=== PATIENT | male | born 1995 | race Two or more races ===

== ENCOUNTER 2023-05-20 09:08 | Outpatient (AMB) | payer OTHER, SELFPAY ==
--- NOTE | 2023-05-20 09:11 | A.OFFPC_ITS ---
Vital Signs 05/20/23 09:12 05/20/23 09:55 Height 5 ft 7 in Weight 282 lb 0.4 oz BMI 44.2 BP 132/92 H 106/70 Blood Pressure Location Lt brachial Rt brachial Position Sitting Sitting Pulse 65 Pulse Source Pulse Oximeter Pulse Oximetry (%) 97 Oxygen Delivery Method Room Air Intake Visit Reasons: New patient-Requesting physical Building Mechanic Required: No Allergies No Known Allergies Allergy (Verified 05/20/23 09:38) Medication List - Last Reconciled 05/20/23 by Emily Sequeira CNP No Known Home Meds Tobacco use date assessed: 05/20/23 Dental Screening Dental Screen Date: 05/20/23 Did you have a dental visit in the last 12 months?: Yes Did you have a dental problem in the last 6 months where you did not have access to dental care?: No Was dental information given to patient?: Patient has dentist HPI HPI Comments History of Present Illness Details New patient Prior PCP:?[facility] Dr. Colindres Last office visit/CPE: About 10 months ago Last routine labs: Likely 2019 Acute issue(s): Anxiety -Not on meds. He notes that he trial psy chotropic medications without improvement. He has been using recreational cannabis with significant improvement Depression -Not on meds Asthma -Not on meds He notes that he does not exercise and has not been making healthy dietary choices PMHx: Anxiety, depression SurgHx: None FHx: Mom: Asthma, DM. Dad: Alcoholism, DM, HTN. MGM: Cardiovascular disease, DM, HTN, HLD. PGM: DM SocHx: Smokes 5 cigarettes daily; 13yr history. drinks etoh occasionally. Was smoking but currently edibles, 5 mg daily PFSH Family History (Updated 05/20/23 @ 09:33 by MARGO Jensen) Mother Asthma Diabetes Father Diabetes High blood pressure Alcoholism Maternal Grandmother High blood pressure Diabetes Cardiovascular disease High cholesterol Paternal Grandmother Diabetes Social History Housing: Apartment Patient Tobacco Use Status: Current everyday Tobacco user Tobacco use type: Cigarette Cigarettes Per Day: 5 Years Smoked: 13 years service: No Current occupational status: employed Cognitive needs: No Hearing needs: No Vision needs: No Questionnaire PHQ-9 Over the last 2 weeks, how often have you been bothered by any of the following problems? 1. Little interest or pleasure in doing things: more than half the days 2. Feeling down, depressed, or hopeless: nearly every day 3. Trouble falling or staying asleep, or sleeping too much: nearly every day 4. Feeling tired or having little energy: nearly every day 5. Poor appetite or overeating: more than half the days 6. Feeling bad about yourself - or that you are a failure or have let yourself or your family down: more than half the days 7. Trouble concentrating on things, such as reading the newspaper or watching television: more than half the days 8. Moving or speaking so slowly that other people could have noticed. Or the opposite - being so fidgety or restless that you have been moving around a lot more than usual: not at all 9. Thoughts that you would be better off or of hurting yourself in some way: several days Total score: 18 Depression Screening Interpretation: Positive Depression Screening Follow-up: Existing condition Depression Screening Done: Yes Source: Developed by Drs. Yaniv Gomez, Divine Marie, Dequan Burns and colleagues, with an educational florina from [employer]. Thrive Questionnaire Date Thrive assessed: 05/20/23 I am a: Patient What is your living situation today?: I have a steady place to live Within the past 12 months, did the food you bought not last and you didn't have the money to get more?: Never true Within the past 12 months, did you worry whether your food would run out before you got money to buy more?: Sometimes True Do you have trouble paying for medicines?: No Do you have trouble getting transportation to medical appointments?: No Do you have trouble paying your heating and electricity bill?: No Do you have trouble taking care of your child, family member or friend?: No Do you have trouble with day-to-day activities such as bathing, preparing meals, shopping, managing finances, etc.?: No Are you currently unemployed and looking for a job?: No Are you interested in more education?: No AUDIT C Alcohol Use Questionnaire (AUDIT-C) 1. How often do you have a drink containing alcohol?: 2-4 times a month 2. How many drinks containing alcohol do you have on a typical day when you are drinking?: 1 or 2 3. How often do you have six or more drinks on one occasion?: Never Total Score: 2 JERILYN-7 AMB Questionnaire JERILYN-7 Date JERILYN - 7 assessed: 05/20/23 Feeling nervous, anxious, or on edge: 1 = Several days Not being able to stop or control worryin = More than half the days Worrying too much about different things: 1 = Several days Trouble relaxin = Nearly every day Being so restless that it is hard to sit still: 1 = Several days Becoming easily annoyed or irritable: 3 = Nearly every day Feeling afraid as if something awful might happen: 1 = Several days Total JERILYN-7 score (0-4 normal; 5-9 mild; 10-14 moderate; 15-21 severe): 12 Source: Developed by Drs. Yaniv Gomez, Divine Marie, Dequan Burns and colleagues, with an educational florina from [employer]. Review of Systems Const Details: Const Denies chills, Denies fatigue, Denies fever(s), Denies headache(s) and Denies weakness ENT Denies dizziness and Denies headache(s) Card Denies chest pain, Denies lightheadedness, Denies dyspnea and Denies other (Palpitations) Resp Denies cough, Denies dyspnea, Denies wheezing and Denies other ( shortness of br eath) GI Denies abdominal pain, Denies melena, Denies hematochezia, Denies change in bowel habits, Denies dyspepsia and Denies nausea Denies hematuria and Denies dysuria Musc Denies abnormal gait, Denies myalgias, Denies arthralgias, Denies numbness and Denies tingling Skin/Breast Denies rash, Denies unusual bruising and Denies wounds Neuro Denies abnormal gait, Denies dizziness, Denies headache(s), Denies memory loss, Denies numbness, Denies Sensory deficit (Neuro), Denies tingling and Denies weakness Psych Denies anxiety, Denies depression, Denies memory loss Endo Denies cold intolerance, Denies fatigue, Denies heat intolerance, Denies polydipsia and Denies polyuria Aller/Immun Denies wheezing Physical exam (Primary Care) Vital Signs: Last Vital Signs Pulse 65 05/20/23 09:12 BP 106/70 05/20/23 09:55 Pulse Ox 97 05/20/23 09:12 Oxygen Delivery Method Room Air 05/20/23 09:12 BMI result Body Mass Index 44.2 Tobacco/Smoking Status: Tobacco use Status Tobacco use date assessed 05/20/23 05/20/23 09:15 Patient Tobacco Use Status Current everyday Tobacco 05/20/23 09:24 Tobacco use type Cigarette 05/20/23 09:24 PHQ-9: PHQ-9 Score PHQ-9: Total score 18 05/20/23 09:52 Depression Screening Interpretation: Positive Depression Screening Follow-up: Existing condition Thrive Assessment: Date of Thrive Assessment Date Thrive assessed 05/20/23 05/20/23 09:15 Const Other: General: no acute distress and well developed Nutritional Appearance: well nourished Orientation/consciousness: patient oriented x3 HENMT Head: Yes normocephalic and Yes atraumatic Eyes General: appearance normal, both eyes and all related structures Pupils: Equal, round and reactive pupils present EOM: EOMs intact bilaterally Resp Effort & Inspection: normal respiratory effort Auscultation: clear to auscultation bilaterally Cardio Rate: regular rate Rhythm: regular rhythm Heart sounds: S1 normal heart sound present, S2 normal heart sound present, no gallops, no murmurs and no rubs GI Palpation (GI): No Abdominal aortic bruit present, Soft to palpation, nontender, No hepatosplenomegaly present and No Rebound tenderness present Auscultation: normal bowel sounds General: Yes no CVA tenderness Back/Spine/Pelvis Back: no CVA tenderness Cervical Spine: cervical ROM normal and No Cervical spine tenderness Thoracic/Lumbar Spine: thoraco-lumbar ROM normal, No pain with thoraco-lumbar ROM, No thoracic spinal tenderness and No lumbar spinal tenderness Extrem General: Yes normal to inspection, No edema and No calf tenderness Skin General: warm and dry. Normal skin color. Normal skin turgor Lesions: no lesions Rashes: no rashes Trauma: no lacerations or abrasions Wounds: no wounds Nails: normal Neuro General: patient oriented x3, gait normal and no focal neuro deficit Cranial nerves: Yes Equal, round and reactive pupils present Cognition (Neuro): normal cognition Gait exam (Neuro): Normal gait present Sensory Exam: No Sensory deficit (Neuro) Psych Appearance: grossly normal Affect: normal affect Attitude: cooperative Thought process: Normal thought process present Assessment and Plan Assessment & Plan (1) Asthma: Code(s): J45.909 - Unspecified asthma, uncomplicated Plan: No acute symptoms Not admit Follow-up with symptoms or concerns Verbalized understanding and agreed with the plan (2) Anxiety: Code(s): F41.9 - Anxiety disorder, unspecified Plan: Reports history of anxiety and depression PHQ-9 and JERILYN-7 scores revealed moderately severe depression and moderate anxiety respectively Not on psychotropic medications Recreational cannabis provides improvement Denies psychotherapy or psychotropic meds Routine exercise encouraged Advised to notify his PCP if he changes mind on psychotherapy or psychotropic medications Follow-up in 3-4 weeks for an extended physical exam and labs review Return sooner with symptoms or concerns Verbalized understanding and agreed with treatment plan (3) Depression: Code(s): F32.A - Depression, unspecified Plan: As above (4) Morbid obesity with BMI of 40.0-44.9, adult: Code(s): E66.01 - Morbid (severe) obesity due to excess calories; Z68.41 - Body mass index [BMI] 40.0-44.9, adult Plan: He does not exercise or makes healthy dietary choices Routine exercise and healthy dietary choices encouraged He prefers bedspread inspector/dietitian referral instead of weight management Referred to bedspread inspector/dietitian Follow-up with symptoms or concerns Verbalized understanding and agreed with treatment plan (5) Laboratory tests ordered as part of a complete physical exam (CPE): Code(s): Z00.00 - Encounter for general adult medical examination without abnormal findings Plan: Fasting labs ordered as part of a complete physical exam. Advised to fast for at least 10 hours before getting labs drawn. May drink water Verbalized understanding and agreed with treatment plan. Orders: Orders Complete Blood Count Auto Diff Today Z00.00 - Encounter for general adult medical examination without abnormal findings Comprehensive [place]. Panel Fast Today Z00.00 - Encounter for general adult medical examination without abnormal findings Lipid Panel Today Z00.00 - Encounter for general adult medical examination without abnormal findings TSH reflex Free T4 Today Z00.00 - Encounter for general adult medical examination without abnormal findings UA CC w/rflx Micro + Cult Today Z00.00 - Encounter for general adult medical examination without abnormal findings Coding Level of Care Code New Pt Level 4 (64162) Diagnoses Asthma J45.909 Anxiety F41.9 Depression F32.A Morbid obesity with BMI of 40.0-44.9, adult E66.01; Z68.41 Laboratory tests ordered as part of a complete physical exam (CPE) Z00.00
[2023-05-20 09:12] VITALS: BP 132/92; PULSE 65; O2SAT 97; BMI 44.2
[2023-05-20 09:55] VITALS: BP 106/70
== END 2023-05-20 10:01 | disposition home or self-care (01) ==
PROVIDERS: PCP Nurse Practitioner Family; Visit Provider Nurse Practitioner Family
DX: J45.909 Unspecified asthma, uncomplicated (principal); F32.A Depression, unspecified; E66.01 Morbid (severe) obesity due to excess calories; Z68.41 Body mass index [BMI] 40.0-44.9, adult; F41.9 Anxiety disorder, unspecified
CPT/HCPCS: 99204

== ENCOUNTER 2023-06-21 10:31 | Outpatient (AMB) | payer OTHER, SELFPAY ==
[2023-06-21 10:35] VITALS: BP 148/84; PULSE 98; RESP 13; TEMP 36.7; O2SAT 98; BMI 44.4
--- NOTE | 2023-06-21 10:35 | MHC.PC.OV ---
Vital Signs 06/21/23 10:35 06/21/23 11:17 Height 5 ft 7 in Weight 283 lb 8 oz BMI 44.4 BP 148/84 H 130/90 H Blood Pressure Location Rt brachial Rt brachial Position Sitting Sitting Respiration 13 Pulse 98 Pulse Source Pulse Oximeter Temp 98.1 F Temp Source Temporal Artery Scan Pulse Oximetry (%) 98 Oxygen Delivery Method Room Air Intake Visit Reasons: CPE Coordinator Cardiopulmonary Services Required: No Accompanied by: Self / Same As Patient Allergies Seasonal Allergies Allergy (Intermediate, Verified 06/21/23 10:54) Runny Nose Medication List - Last Reconciled 06/21/23 by Emily Sequeira CNP No Known Home Meds Tobacco use date assessed: 05/20/23 Dental Screening Dental Screen Date: 06/21/23 Did you have a dental visit in the last 12 months?: Yes Did you have a dental problem in the last 6 months where you did not have access to dental care?: No Was dental information given to patient?: Patient has dentist HPI HPI Comments History of Present Illness Details 28-year-old male presents for an extended physical exam He established care a month ago He has not gotten his outstanding labs done He reports controlled anxiety and depression symptoms. He wants to connect to a therapist He offers no complaints and denies acute symptoms at this time He notes that he has been eating fast and junk food routinely. He has not been exercising frequently He currently smokes 5 cigarettes daily. He has been smoking for the past 13 years. He bought otc Chantix gum and intends to quit smoking He smokes 2 joints of marijuana daily He is sexually active, in a monogamous relationship, and has no concerns for STD [facility] Medical History (Updated 06/21/23 @ 11:14 by Emily Sequeira CNP) No pertinent past medical history Surgical History (Updated 06/21/23 @ 10:43 by Florence Hollingsworth MA) No pertinent past surgical history Family History Mother Asthma Diabetes Father Diabetes High blood pressure Alcoholism Maternal Grandmother High blood pressure Diabetes Cardiovascular disease High cholesterol Paternal Grandmother Diabetes Other Mental health disorder Substance abuse Social History Housing: Apartment Patient Tobacco Use Status: Current everyday Tobacco user Tobacco use type: Cigarette Cigarette Packs Per Day: 0.25 Cigarettes Per Day: 5 Years Smoked: 13 years e-Cigarette/Vaping Use: Never Used service: No Current occupational status: employed Current occupation: [employer] Cognitive needs: No Hearing needs: No Vision needs: No Questionnaire PHQ-9 Over the last 2 weeks, how often have you been bothered by any of the following problems? 1. Little interest or pleasure in doing things: several days 2. Feeling down, depressed, or hopeless: several days 3. Trouble falling or staying asleep, or sleeping too much: more than half the days 4. Feeling tired or having little energy: more than half the days 5. Poor appetite or overeating: more than half the days 6. Feeling bad about yourself - or that you are a failure or have let yourself or your family down: several days 7. Trouble concentrating on things, such as reading the newspaper or watching television: not at all 8. Moving or speaking so slowly that other people could have noticed. Or the opposite - being so fidgety or restless that you have been moving around a lot more than usual: not at all 9. Thoughts that you would be better off or of hurting yourself in some way: not at all Total score: 9 Depression Screening Interpretation: Positive Depression Screening Follow-up: Existing condition and Community Mental Health Worker F/U Depression Screening Done: Yes 84712 - PHQ-9 Billing: Yes Source: Developed by Drs. Yaniv Gomez, Divine Marie, Dequan Burns and colleagues, with an educational florina from [employer]. Thrive Questionnaire Date Thrive assessed: 05/20/23 AUDIT C Alcohol Use Questionnaire (AUDIT-C) 1. How often do you have a drink containing alcohol?: Never 3. How often do you have six or more drinks on one occasion?: Never Total Score: 0 JERILYN-7 AMB Questionnaire JERILYN-7 Date JERILYN - 7 assessed: 06/21/23 Feeling nervous, anxious, or on edge: 1 = Several days Not being able to stop or control worryin = Several days Worrying too much about different things: 0 = Not at all Trouble relaxin = Several days Being so restless that it is hard to sit still: 0 = Not at all Becoming easily annoyed or irritable: 2 = More than half the days Feeling afraid as if something awful might happen: 0 = Not at all Total JERILYN-7 score (0-4 normal; 5-9 mild; 10-14 moderate; 15-21 severe): 5 Source: Developed by Drs. Yaniv Gomez, Divine Marie, Dequan Burns and colleagues, with an educational florina from [employer]. JERILYN-7 Assessment Billing JERILYN-7 Assessment Tool: JERILYN-7 Assessment 31553 Review of Systems Const Details: Denies chills, Denies fatigue, Denies fever(s), Denies headache(s) and Denies weakness HEENT Denies change in vision, Denies dizziness, Denies headache(s), Denies hearing loss, Denies nasal congestion, Denies sinus pain, Denies sinus pressure and Denies sore throat Card Denies chest pain, Denies lightheadedness, Denies dyspnea and Denies other (palpitations) Resp Denies cough, Denies dyspnea and Denies wheezing GI Denies abdominal pain, Denies melena, Denies hematochezia, Denies change in bowel habits, Denies dyspepsia and Denies nausea Denies hematuria and Denies dysuria Musc Denies abnormal gait, Denies myalgias, Denies arthralgias, Denies numbness and Denies tingling Skin/Breast Denies rash, Denies unusual bruising and Denies wounds Neuro Denies abnormal gait, Denies dizziness, Denies headache(s), Denies memory loss, Denies numbness, Denies Sensory deficit (Neuro), Denies tingling and Denies weakness Psych Denies anxiety, Denies depression and Denies memory loss Endo Denies cold intolerance, Denies fatigue, Denies heat intolerance, Denies polydipsia and Denies polyuria Alejandro/Lymph Denies easy bleeding and Denies easy bruising Aller/Immun Denies wheezing Physical exam (Primary Care) Vital Signs: Last Vital Signs Temp 98.1 F 06/21/23 10:35 Pulse 98 06/21/23 10:35 Resp 13 06/21/23 10:35 BP 148/84 H 06/21/23 10:35 Pulse Ox 98 06/21/23 10:35 Oxygen Delivery Method Room Air 06/21/23 10:35 BMI result Body Mass Index 44.4 Tobacco/Smoking Status: Tobacco use Status Tobacco use date assessed 05/20/23 06/21/23 10:37 Patient Tobacco Use Status Current everyday Tobacco 06/21/23 10:37 Tobacco use type Cigarette 06/21/23 10:37 e-Cigarette/Vaping Use Never Used 06/21/23 10:47 PHQ-9: PHQ-9 Score PHQ-9: Total score 9 06/21/23 10:47 Depression Screening Interpretation: Positive Depression Screening Follow-up: Existing condition and Community Mental Health Worker F/U Thrive Assessment: Date of Thrive Assessment Date Thrive assessed 05/20/23 06/21/23 10:37 Const Other: General: no acute distress, well developed, alert and awake Nutritional Appearance: well nourished Orientation/consciousness: patient oriented x3 HENMT Head: Yes normocephalic and Yes atraumatic Ears: hearing grossly normal bilaterally and TM's normal bilaterally General nose exam: Normal external nose present and Normal nares present Mouth: Normal oral and palatal mucosa present and moist mucous membranes Teeth and gingiva: dentition normal Throat: Yes oropharynx normal Eyes Pupils: Equal, round and reactive pupils present and Pupil accommodation reflex normal EOM: EOMs intact bilaterally Neck Neck: Yes normal visual inspection, Yes no lymphadenopathy and Yes trachea midline Thyroid: Thyroid normal Carotids: no bruits Lymphatic: no lymphadenopathy noted Chest Chest palpation & inspection: normal inspection of the chest Resp Effort & Inspection: normal respiratory effort Auscultation: clear to auscultation bilaterally Cardio Rate: regular rate Rhythm: regular rhythm Heart sounds: S1 normal heart sound present, S2 normal heart sound present, no gallops, no murmurs and no rubs Bruits: no abdominal aortic bruits and no carotid bruits GI Palpation (GI): No Abdominal aortic bruit present, Soft to palpation, nontender, No hepatosplenomegaly present and No Rebound tenderness present Auscultation: normal bowel sounds General: Yes no CVA tenderness Back/Spine/Pelvis Back: no CVA tenderness Cervical Spine: cervical ROM normal and No Cervical spine tenderness Thoracic/Lumbar Spine: thoraco-lumbar ROM normal, No pain with thoraco-lumbar ROM, No thoracic spinal tenderness and No lumbar spinal tenderness Skin General: warm and dry. Normal skin color. Normal skin turgor Lesions: no lesions Rashes: no rashes Trauma: no lacerations or abrasions Wounds: no wounds Nails: normal Neuro General: patient oriented x3, gait normal and CN's II-XI intact bilaterally Cranial nerves: Yes Equal, round and reactive pupils present Cognition (Neuro): normal cognition Gait exam (Neuro): Normal gait present Motor exam (neuro): 5/5 motor strength present throughout Sensory Exam: No Sensory deficit (Neuro) Deep tendon reflexes (DTR's): Right patellar reflex intensity grade: 2+ and Left patellar reflex intensity grade: 2+ Extrem General: Yes normal to inspection, No edema and No calf tenderness Psych Appearance: grossly normal Affect: normal affect Attitude: cooperative Thought process: Normal thought process present Assessment and Plan Assessment & Plan (1) Normal physical examination, routine: Code(s): Z00.00 - Encounter for general adult medical examination without abnormal findings Plan: No significant physical restrictions or limitations noted Healthy diet and routine exercise encouraged Advised to get urinalysis and fasting blood done and schedule a telehealth visit in 3-4 weeks for labs review Return sooner with symptoms or concerns Verbalized understanding and agreed with the plan (2) Anxiety and depression: Code(s): F41.9 - Anxiety disorder, unspecified; F32.A - Depression, unspecified Plan: Controlled depression and anxiety symptoms PHQ-9 and JERILYN-7 scores revealed mild depression and anxiety Routine exercise encouraged He met with the [facility]W who would refer him to a therapist Follow-up with symptoms or concerns Verbalized understanding and agreed with treatment plan (3) Morbid obesity with BMI of 40.0-44.9, adult: Code(s): E66.01 - Morbid (severe) obesity due to excess calories; Z68.41 - Body mass index [BMI] 40.0-44.9, adult Plan: He currently weighs 283 lb, BMI is 44.4 Healthy diet and routine exercise encouraged Referred to equine dentist Return with symptoms or concerns Verbalized understanding and agreed with the plan (4) Smoking 1/2 pack a day or less: Code(s): F17.210 - Nicotine dependence, cigarettes, uncomplicated Plan: He currently smokes 5 cigarettes daily. He has been smoking for the past 13 years He has been using [id number] Chantix for smoking cessation Instructed on the health risks and complications of cigarette smoking and encouraged to quit smoking Follow-up with symptoms or concerns or further treatment of cigarette smoking Verbalized understanding and agreed with the plan Orders: Referrals Principal Java Software Engineer Nutrition Referral E66.01 - Morbid (severe) obesity due to excess calories, Z68.41 - Body mass index [BMI] 40.0-44.9, adult Coding Level of Care Code Est Pt Prev Care 18-39y(06038) Diagnoses Normal physical examination, routine Z00.00 Anxiety and depression F41.9; F32.A Morbid obesity with BMI of 40.0-44.9, adult E66.01; Z68.41 Smoking 1/2 pack a day or less F17.210 Additional Codes JERILYN-7 Assessment Billing - JERILYN-7 Assessment Tool: JERILYN-7 Assessment [id number] ([id number])
[2023-06-21 11:17] VITALS: BP 130/90
== END 2023-06-21 11:18 | disposition home or self-care (01) ==
PROVIDERS: PCP Nurse Practitioner Family; Visit Provider Nurse Practitioner Family
DX: Z00.00 Encounter for general adult medical examination without abnormal findings (principal); E66.01 Morbid (severe) obesity due to excess calories; Z68.41 Body mass index [BMI] 40.0-44.9, adult; F41.9 Anxiety disorder, unspecified; F32.A Depression, unspecified; F17.210 Nicotine dependence, cigarettes, uncomplicated
CPT/HCPCS: 99395

== ENCOUNTER 2023-09-03 17:59 | Emergency (ER) | payer OTHER, SELFPAY ==
--- NOTE | ~2023-09-03 | XR_ITS ---
EXAMINATION: XR HIP, LEFT CLINICAL INFORMATION: Pain COMPARISON: None available. TECHNIQUE: AP upright, AP supine, and frog-leg lateral views of the left hip. FINDINGS: Osseous fragment at the superolateral acetabulum likely reflects an os acetabuli. Bilateral femoral heads have an oblong appearance. No acute fracture. The femoral heads are well seated within the acetabula bilaterally. The pelvic rim is intact. No pubic symphysis diastases. Sacroiliac joint spaces are well-maintained without erosions or surrounding sclerosis. XR/XR hip LT min 2V IMPRESSION: Left femoral head deformity with os acetabuli, suggestive of cam-type femoroacetabular impingement syndrome.
--- NOTE | ~2023-09-03 | XR_ITS ---
EXAMINATION: XR LUMBAR SPINE CLINICAL INFORMATION: Pain COMPARISON: None available. TECHNIQUE: Three views of the lumbar spine. FINDINGS: There is anatomic alignment of the lumbar vertebral bodies and posterior elements. Vertebral body heights are maintained. Intervertebral disc spaces appear relatively well-preserved. No acute fracture is seen. Slight anterior wedging of T11 and T12 is suspected to be chronic, with anterior endplate osteophytes noted. Sacroiliac joints appear intact. XR/XR lumbar spine 2-3V IMPRESSION: No acute findings identified.
[2023-09-03 18:01] VITALS: BP 145/88; PULSE 103; RESP 18; TEMP 36.7; O2SAT 100; BMI 41.5
--- NOTE | 2023-09-03 18:29 | ED_ITS ---
HPI - General Adult General Chief complaint: Back Pain/Injury Stated complaint: sciatica pain Time Seen by Provider: 09/03/23 18:29 Source: patient Mode of arrival: wheelchair Limitations: no limitations History of Present Illness HPI narrative: Patient is a 28 year old assigned male at with a history of anxiety presenting to the emergency department today with back pain and left hip pain. Patient states that over the last week he has had back pain. Patient states that he was seen at [facility] and released with muscle relaxers but they don't seem to be helping. Patient denies any dizziness, lightheadedness, abdominal pain, nausea, vomiting, fever, chills, blurry vision, double vision, loss of vision, chest pain, difficulty breathing, shortness of breath, night sweats, pain with urination, increased urinary frequency, increased urinary urgency, blood in his urine or stool, syncope or a near syncopal episode, recent trauma or falls, bowel incontinence, bladder incontinence, bowel retention, bladder retention, or any other complaints at this time. Onset (ago): week(s) (1) Location: back Radiation: other (into buttocks and legs) Severity: mild Severity scale (1-10): 4 Quality: aching and dull Pain Consistency: constant Relieving factors: none Exacerbating factors: movement Associated symptoms: denies other symptoms Treatments prior to arrival: other (muscle relaxers) Related Data Previous Rx's ?Medication ?Instructions ?Recorded celecoxib 200 mg capsule (Celebrex) 200 mg PO BID 2 weeks #28 caps 09/03/23 Allergies Allergy/AdvReac Type Severity Reaction Status Date / Time Seasonal Allergies Allergy Intermediate Runny Nose Verified 09/03/23 18:03 Review of Systems Constitutional: Constitutional: Reports no additional constitutional complaints, Denies chills, Denies fever(s) and Denies night sweats Eyes: Eyes: Reports no additional eye complaints, Denies blurry vision, Denies change in vision, Denies diplopia, Denies eye discharge, Denies loss of vision and Denies eye pain ENT: Denies dizziness Cardiovascular: Cardiovascular: Reports no additional cardiovascular complaints, Denies chest pain, Denies lightheadedness, Denies Loss of Consciousness and Denies dyspnea Respiratory: Respiratory: Reports no additional respiratory complaints and Denies dyspnea Gastrointestinal: Gastrointestinal: Reports no additional gastrointestinal complaints, Denies abdominal pain, Denies melena, Denies hematochezia, Denies change in bowel habits and Denies change in stool character Genitourinary: Genitourinary: Reports no additional male genitourinary complaints, Denies hematuria, Denies oliguria, Denies difficulty urinating, Denies dysuria, Denies urinary frequency, Denies urinary hesitancy, Denies urinary incontinence and Denies urinary urgency Musculoskeletal: Musculoskeletal: Reports no additional musculoskeletal complaints, Reports back pain, Denies numbness and Denies tingling Comments: left hip pain Neurologic: Denies dizziness, Denies loss of vision, Denies numbness and Denies tingling Psychiatric: Psychiatric: Reports no additional psychiatric complaints Endocrine: Endocrine: Reports no additional endocrine complaints Hematologic/Lymphatic: Hematologic/Lymphatic: Reports no additional hematologic/lymphatic complaints Allergic/Immunologic: Allergic/Immunologic: Reports no additional allergic/immunologic complaints PMFSH Past Medical History Attestation statement: The following information was validated with the patient. Source: old records reviewed and nursing notes reviewed Medical History No pertinent past medical history Surgical History No pertinent past surgical history Family History Family History Mother Asthma Diabetes Father Diabetes High blood pressure Alcoholism Maternal Grandmother High blood pressure Diabetes Cardiovascular disease High cholesterol Paternal Grandmother Diabetes Other Mental health disorder Substance abuse Social History Social History Housing: Apartment Patient Tobacco Use Status: Current everyday Tobacco user Tobacco use type: Cigarette Cigarette Packs Per Day: 0.25 Cigarettes Per Day: 5 Years Smoked: 13 years e-Cigarette/Vaping Use: Never Used Advance Directives: No Advance Directives Information Provided: No Do you have a plan to hurt others: No Plan service: No Current occupational status: employed Current occupation: Retail Cognitive needs: No Hearing needs: No Vision needs: No Physical Exam ED Vital Signs: Vital Signs - 24 hr 09/03/23 19:51 09/03/23 21:13 Temperature 98.3 F 98.3 F Pulse Rate 84 84 Respiratory Rate 20 20 Blood Pressure 127/69 127/69 Pulse Oximetry 98 98 Oxygen Delivery Method Room Air Room Air BMI result Body Mass Index 41.5 Const General: cooperative, no acute distress, alert and awake Nutritional Appearance: well nourished Orientation/consciousness: patient oriented x3 Limitations: no limitations HENMT Head: Yes normal to inspection and Yes atraumatic Ears: hearing grossly normal bilaterally and external ears normal General nose exam: Normal external nose present, no nasal discharge noted and no epistaxis Face and sinus: Yes normal facial exam, No abrasion and No laceration Mouth: Normal oral and palatal mucosa present, no drooling and no muffled voice Eyes General: appearance normal, both eyes and all related structures Periorbital: periorbital findings normal Eyelids: Yes eyelids normal Conjunctivae: conjunctivae normal Pupils: Equal, round and reactive pupils present EOM: EOMs intact bilaterally Neck Neck: Yes normal visual inspection, Yes full ROM and Yes no lymphadenopathy Chest Chest palpation & inspection: normal inspection of the chest Resp Effort & Inspection: normal respiratory effort and able to speak in complete sentences GI Inspection: Yes normal to inspection General: Yes no CVA tenderness Back/Spine/Pelvis Back: no CVA tenderness Cervical Spine: normal cervical lordosis and cervical ROM normal Thoracic/Lumbar Spine: thoracic and lumbar spine normal to inspection Pelvis: no pain with anterior-posterior compression Neuro General: patient oriented x3 and moves all extremities Cranial nerves: Yes Equal, round and reactive pupils present Cognition (Neuro): normal cognition Motor exam (neuro): 5/5 motor strength present throughout Sensory Exam: Normal double simultaneous stimulation for sensation Coordination: [id number] test normal Extrem General: Yes normal to inspection, Yes full ROM and Yes capillary refill normal Psych Appearance: grossly normal Mental Status: mental status grossly normal Affect: normal affect Attitude: cooperative Thought process: Normal thought process present Thought content: Normal thought content present Insight: Good insight present (Psych) Medications Administered Discontinued Medications Generic Name Dose Route Start Last Admin Trade Name Freq PRN Reason Stop Dose Admin Diazepam 2 mg 09/03/23 18:39 09/03/23 18:57 Diazepam 2 Mg Tablet PO 09/03/23 18:40 2 mg ONCE ONE Administration Ketorolac Tromethamine 15 mg 09/03/23 18:39 09/03/23 18:57 Ketorolac Tromethamine 15 Mg/Ml Vial IM 09/03/23 18:40 15 mg ONCE ONE Administration Methylprednisolone Sodium Succinate 60 mg 09/03/23 18:39 09/03/23 18:57 Methylprednisolone Sod Succ 125 Mg/2 Ml Vial IM 09/03/23 18:40 60 mg ONCE ONE Administration Medical Decision Making Medical Decision Making [facility] Narrative: Patient is a 28 year old assigned male at with a history of anxiety presenting to the emergency department today with low back pain and left hip pain. Patient's physical exam was unremarkable. Patient's lumbar spine x-ray showed no acute process. Patient's left hip x-ray showed left femoral head deformity with os acetabuli suggestive of cam-type femoroacetabular impingement syndrome. I spoke to the orthopedic team who recommended discharge with NSAIDs and follow up with their service outpatient. I explained my physical exam findings as well as all test results to the patient. I answered all questions asked by the patient. Patient received IM Toradol, PO Valium, and IM Solu-medrol which he stated helped his symptoms significantly. I stressed the importance of the patient taking his medication as prescribed. I stressed the importance of the patient following up with his primary care provider and an orthopedic provider. I stressed the importance of the patient returning to the emergency department immediately if his symptoms were to worsen or if he were to develop any dizziness, shortness of breath, difficulty breathing, chest pain, blurry vision, loss of vision, nausea, vomiting, abdominal pain, fever, chills, back pain, or any other complaints. Patient verbalized agreement and understanding with this treatment plan and discharge. Differential Diagnosis Differential Diagnoses: The differential diagnosis associated with the presentation includes Hip impingement Hip pain Back pain Admission/Observation Consideration of admission/observation: Escalation of care including admission/observation considered Patient would have been admitted to the hospital had his work up had any findings where hospital admission was appropriate and his clinical presentation warranted hospital admission. Consult Healthcare Provider Management of the patient was discussed with: Director Of Catering (spoke to the [facility] provider as noted in the [facility] Rationale portion of this note) Independent Interpretation I performed an independent interpretation of an: Plain X-Ray Interpretation: My interpretation is in agreement with the radiologist's impression of these imaging studies. EXAMINATION: XR LUMBAR SPINE CLINICAL INFORMATION: Pain COMPARISON: None available. TECHNIQUE: Three views of the lumbar spine. FINDINGS: There is anatomic alignment of the lumbar vertebral bodies and posterior elements. Vertebral body heights are maintained. Intervertebral disc spaces appear relatively well-preserved. No acute fracture is seen. Slight anterior wedging of T11 and T12 is suspected to be chronic, with anterior endplate osteophytes noted. Sacroiliac joints appear intact. XR/XR lumbar spine 2-3V IMPRESSION: No acute findings identified. Dictated By: Naseem Reyes MD Signed By: Electronically signed by Naseem Reyes MD 09/03/232020 EXAMINATION: XR HIP, LEFT CLINICAL INFORMATION: Pain COMPARISON: None available. TECHNIQUE: AP upright, AP supine, and frog-leg lateral views of the left hip. FINDINGS: Osseous fragment at the superolateral acetabulum likely reflects an os acetabuli. Bilateral femoral heads have an oblong appearance. No acute fracture. The femoral heads are well seated within the acetabula bilaterally. The pelvic rim is intact. No pubic symphysis diastases. Sacroiliac joint spaces are well-maintained without erosions or surrounding sclerosis. XR/XR hip LT min 2V IMPRESSION: Left femoral head deformity with os acetabuli, suggestive of cam-type femoroacetabular impingement syndrome. Dictated By: Ann Burnett Signed By: Electronically signed by Ann Burnett 09/03/232032 Radiology Impression Discussion of test interpretation with radiology: I have reviewed the radiologist's reading. Prescription Management I considered prescription management with: Pain Medication (patient prescribed pain medication) Discharge Plan Discharge Clinical Impression: Femoroacetabular impingement Patient Disposition: Home, Self-Care Instructions: Hip Impingement (ED) Additional Instructions: Femoroacetabular impingement syndrome. Follow up with your primary care provider and an orthoepdic provider. Return to the emergency department immediately if your symptoms worsen or if you develop any dizziness, shortness of breath, difficulty breathing, chest pain, blurry vision, loss of vision, nausea, vomiting, abdominal pain, fever, chills, back pain, or any other complaints. Prescriptions: New celecoxib [Celebrex] 200 mg capsule 200 mg PO BID 14 Days Qty: 28 0RF Referrals: [facility] [place] Family Medicine [Provider Group] (Call to establish and follow up with a primary care provider. If you already have a primary care provider, please follow up with them.) [facility] [place] Primary CareJas [Provider Group] [facility] [place] Primary CareKeerthi [Provider Group] [facility] [place] Orthopedic Surgeons [Provider Group] (Call to establish and follow up with an orthopedic provider.) Interventions: ED Discharge Assessment Last Done: 09/03/23 21:13 Discharge Date/Time: 09/03/23 21:16 Print Language: Slovenian
[2023-09-03] MEDS: diazePAM 2 MG TABLET PO (18:57)
[2023-09-03] MEDS: Ketorolac Tromethamine 15 MG/ML VIAL IM (18:57)
[2023-09-03] MEDS: methylPREDNISolone Sod Succ 125 MG/2 ML VIAL 60 MG IM (18:57)
[2023-09-03 19:51] VITALS: BP 127/69; PULSE 84; RESP 20; TEMP 36.8; O2SAT 98
[2023-09-03 21:13] VITALS: BP 127/69; PULSE 84; RESP 20; TEMP 36.8; O2SAT 98
== END 2023-09-03 21:16 | disposition home or self-care (01) ==
PROVIDERS: Emergency Provider Internal Medicine
DX: M24.852 Other specific joint derangements of left hip, not elsewhere classified (principal)
CPT/HCPCS: 72100; 73502; 96372; 99283; 99284; J1885; J2919

== ENCOUNTER 2023-09-05 12:34 | Outpatient (AMB) | payer OTHER, SELFPAY ==
[2023-09-05 12:39] VITALS: BP 124/86; PULSE 114; RESP 13; TEMP 36.6; O2SAT 99; BMI 42.8
--- NOTE | 2023-09-05 12:39 | A.OFFPC_ITS ---
Vital Signs 09/05/23 12:39 Height 5 ft 7 in Weight 273 lb 2 oz BMI 42.8 BP 124/86 Blood Pressure Location Rt brachial Position Sitting Respiration 13 Pulse 114 H Pulse Source Pulse Oximeter Temp 98 F Temp Source Temporal Artery Scan Pulse Oximetry (%) 99 Oxygen Delivery Method Room Air Intake Visit Reasons: sialic nerve pain Director Business Development Required: No Accompanied by: Self / Same As Patient Allergies Seasonal Allergies Allergy (Intermediate, Verified 09/05/23 13:14) Runny Nose Medication List - Last Reconciled 09/05/23 by Emily Sequeira CNP celecoxib (Celebrex) 200 mg PO BID 2 weeks cyclobenzaprine 10 mg PO TID PRN Tobacco use date assessed: 05/20/23 Dental Screening Dental Screen Date: 09/05/23 Did you have a dental visit in the last 12 months?: Yes Did you have a dental problem in the last 6 months where you did not have access to dental care?: No Was dental information given to patient?: Patient has dentist HPI HPI Comments History of Present Illness Details 28-year-old male presents for a follow u p visit for complaints of low back and left hip pain. He was evaluated for similar complaint at [facility] 2 days ago. His lumbar spine x- ray showed no acute process. Patient's left hip x-ray showed left femoral head deformity with os acetabuli suggestive of cam-type femoroacetabular impingement syndrome. He was discharged home on Celebrex 200 mg twice daily instructed to follow-up outpatient. He notes that he has been taking Celebrex twice daily with significant improvement of his lower back and left hip pain. He notes that the pain has been mild. No tingling, numbness, or loss of sensation. No loss of bladder or bowel control. He denies fall, injury, or trauma. [facility] Medical History No pertinent past medical history Surgical History No pertinent past surgical history Family History (Updated 09/05/23 @ 12:48 by DAYANA Templeton) Mother Asthma Diabetes Father Diabetes High blood pressure Alcoholism Maternal Grandmother High blood pressure Diabetes Cardiovascular disease High cholesterol Paternal Grandmother Diabetes Other Mental health disorder Substance abuse Social History Housing: Apartment Patient Tobacco Use Status: Current everyday Tobacco user Tobacco use type: Cigarette Cigarettes Per Day: 2 Years Smoked: 13 years e-Cigarette/Vaping Use: Never Used service: No Current occupational status: employed Current occupation: Retail Cognitive needs: No Hearing needs: No Vision needs: No Questionnaire Thrive Questionnaire Date Thrive assessed: 05/20/23 JERILYN-7 AMB Questionnaire JERILYN-7 Date JERILYN - 7 assessed: 06/21/23 Source: Developed by Drs. Yaniv Gomez, Divine Marie, Dequan Burns and colleagues, with an educational florina from [employer]. Review of Systems Const Details: Const Denies chills, Denies fatigue, Denies fever(s), Denies headache(s) and Denies weakness ENT Denies dizziness and Denies headache(s) Card Denies chest pain, Denies lightheadedness, Denies dyspnea and Denies other (Palpitations) Resp Denies cough, Denies dyspnea, Denies wheezing and Denies other ( shortness of breath) GI Denies abdominal pain, Denies melena, Denies hematochezia, Denies change in bowel habits, Denies dyspepsia and Denies nausea Denies hematuria and Denies dysuria Musc Reports as per HPI Skin/Breast Denies rash, Denies unusual bruising and Denies wounds Neuro Denies abnormal gait, Denies dizziness, Denies headache(s), Denies memory loss, Denies numbness, Denies Sensory deficit (Neuro), Denies tingling and Denies weakness Psych Denies anxiety, Denies depression, Denies memory loss Endo Denies cold intolerance, Denies fatigue, Denies heat intolerance, Denies polydipsia and Denies polyuria Aller/Immun Denies wheezing Physical exam (Primary Care) Vital Signs: Last Vital Signs Temp 98 F 09/05/23 12:39 Pulse 114 H 09/05/23 12:39 Resp 13 09/05/23 12:39 BP 124/86 09/05/23 12:39 Pulse Ox 99 09/05/23 12:39 Oxygen Delivery Method Room Air 09/05/23 12:39 BMI result Body Mass Index 42.8 Tobacco/Smoking Status: Tobacco use Status Tobacco use date assessed 05/20/23 09/05/23 12:48 Patient Tobacco Use Status Current everyday Tobacco 09/05/23 12:48 Tobacco use type Cigarette 09/05/23 12:48 e-Cigarette/Vaping Use Never Used 09/05/23 12:48 Thrive Assessment: Date of Thrive Assessment Date Thrive assessed 05/20/23 09/05/23 12:48 Const Other: General: no acute distress and well developed Nutritional Appearance: well nourished Orientation/consciousness: patient oriented x3 HENKS Head: Yes normocephalic and Yes atraumatic Eyes General: appearance normal, both eyes and all related structures Pupils: Equal, round and reactive pupils present EOM: EOMs intact bilaterally Resp Effort & Inspection: normal respiratory effort Auscultation: clear to auscultation bilaterally Cardio Rate: regular rate Rhythm: regular rhythm Heart sounds: S1 normal heart sound present, S2 normal heart sound present, no gallops, no murmurs and no rubs GI Palpation (GI): No Abdominal aortic bruit present, Soft to palpation, nontender, No hepatosplenomegaly present and No Rebound tenderness present Auscultation: normal bowel sounds General: Yes no CVA tenderness Back/Spine/Pelvis Back: no CVA tenderness Cervical Spine: cervical ROM normal and No Cervical spine tenderness Thoracic/Lumbar Spine: thoraco-lumbar ROM normal, No pain with thoraco-lumbar ROM, No thoracic spinal tenderness and lumbar spinal tenderness Extrem General: Yes normal to inspection, No edema and No calf tenderness Negative left straight leg raise Skin General: warm and dry. Normal skin color. Normal skin turgor Neuro General: patient oriented x3, gait normal and no focal neuro deficit Cranial nerves: Yes Equal, round and reactive pupils present Cognition (Neuro): normal cognition Gait exam (Neuro): Normal gait present Sensory Exam: No Sensory deficit (Neuro) Psych Appearance: grossly normal Affect: normal affect Attitude: cooperative Thought process: Normal thought process present Assessment and Plan Assessment & Plan (1) Femoroacetabular impingement: Code(s): M25.859 - Other specified joint disorders, unspecified hip Plan: Left hip pain Negative left straight leg raise No overt injury or trauma Continue to take Celebrex as prescribed. May take ibuprofen 600 mg 3 times daily as needed if he runs out of Celebrex. Advised to take Celebrex or i buprofen with food Warm/cold compresses and weight loss encouraged Referred to physical therapy Follow-up with worsening or new symptoms Verbalized understanding and agreed with treatment plan (2) Low back pain: Code(s): M54.50 - Low back pain, unspecified Plan: Mild lumbar spine tenderness to palpation No overt injury or trauma Plan as above Orders: Orders PT Evaluation and Treatment 09/05/23 M25.859 - Other specified joint disorders, unspecified hip, M54.50 - Low back pain, unspecified Coding Level of Care Code Est Pt Level 4 (63865) Complex EM visit Add On G2211 Diagnoses Femoroacetabular impingement M25.859 Low back pain M54.50
== END 2023-09-05 13:24 | disposition home or self-care (01) ==
PROVIDERS: PCP Nurse Practitioner Family; Visit Provider Nurse Practitioner Family
DX: M25.859 Other specified joint disorders, unspecified hip (principal); M54.50 Low back pain, unspecified
CPT/HCPCS: 99214; G2211

== ENCOUNTER 2023-09-06 11:02 | Outpatient (REF) | payer OTHER, SELFPAY ==
[2023-09-06 14:19] LABS: MANUAL DIFF FLAG NO
[2023-09-06 14:20] LABS: Appearance Urine Clear; Color Urine Yellow; Glucose Urine UA Negative (Negative); Leukocyte Esterase Urine Negative (Negative); Nitrite Urine Negative (Negative); PH 6.5 (5.0-9.0); Specific Gravity - Urine >= 1.030 (1.005-1.025); Urine Blood Negative (Negative); Urine Ketones Negative (Negative); Urine Protein Negative (Neg-Trace)
[2023-09-06 14:22] LABS: Basophils Absolute Auto 0.1 X10*3/uL (0.0-0.2); Basophils Percent Auto 0.8 % (0-2); Eosinophils Absolute Auto 0.5 X10*3/uL (0.0-0.4); Eosinophils Percent Auto 4.6 % (0-4); Hematocrit 43.5 % (42.0-52.0); Hemoglobin 14.4 g/dl (14.0-18.0); Imm Gran Abs Auto 0.03 X10*3/uL (0.00-0.03); Imm Gran Pct Auto 0.3 % (0.0-0.4); Lymphocytes Absolute Auto 3.1 X10*3/uL (1.2-4.9); Lymphocytes Percent Auto 31.2 % (20-40); Mean Corpuscular HGB Conc 33.1 g/dl (31.0-36.0); Mean Corpuscular Hemoglobin 27.4 pg (27.0-33.0); Mean Corpuscular Volume 82.9 fL (80.0-98.0); Mean Platelet Volume 10.2 fL (9.4-12.4); Monocytes Absolute Auto 0.8 X10*3/uL (0.1-1.2); Neutrophils Absolute Auto 5.4 x10*3/uL (2.0-8.3); Neutrophils Percent Auto 55.1 % (45-73); Platelet Count 317 X10*3/uL (160-400); Red Blood Count 5.25 X10*6/uL (4.60-5.80); Red Cell Distribution Width 13.8 % (11.0-16.0); White Blood Count 9.8 X10*3/uL (4.8-10.8)
[2023-09-06 16:08] LABS: Alanine Aminotransferase 43 U/L (0-40); Albumin Level 3.8 g/dL (3.5-5.0); Alkaline Phosphatase 71 U/L (39-117); Anion Gap 12 (12-20); Aspartate Amino Transferase 25 U/L (5-37); Bilirubin Total 0.3 mg/dL (0.0-1.0); Blood Urea Nitrogen 13 mg/dL (9-16); Calcium 8.8 mg/dL (8.4-10.2); Carbon Dioxide 24 mmol/L (22-29); Chloride 108 mmol/L (96-108); Cholesterol 154 mg/dL (<200); Estimated Glomerular Filt Rate > 60; Glucose Fasting 83 mg/dL (60-99); HDL Cholesterol 40 mg/dL (>40); LDL Cholesterol Calculated 103 mg/dL (<100); Potassium 4.2 mmol/L (3.3-5.1); Sodium 140 mmol/L (135-145); Total Protein 6.8 g/dL (6.5-8.0); Triglycerides 57 mg/dL (<150)
== END 2023-09-06 11:03 | disposition home or self-care (01) ==
LOC: HO.WFDLDS 11:02
PROVIDERS: Visit Provider Nurse Practitioner Family
DX: Z00.00 Encounter for general adult medical examination without abnormal findings (principal)
CPT/HCPCS: 36415; 80053; 80061; 81003; 84443; 85025

== ENCOUNTER 2023-09-19 14:38 | Outpatient (AMB) | payer OTHER, SELFPAY ==
--- NOTE | 2023-09-19 14:39 | MHC.PC.OV ---
Intake Visit Reasons: telehealth 2 wks labs Intake Note: Patient is here to follow up on lab results. 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 Accompanied by: Self / Same As Patient Allergies Seasonal Allergies Allergy (Intermediate, Verified 09/19/23 14:41) Runny Nose Tobacco use date assessed: 09/19/23 Dental Screening Dental Screen Date: 09/05/23 HPI HPI Comments History of Present Illness Details 28-year-old male presents for telemedicine visit for review of recent labs results He offers no complaints and denies acute symptoms at this time [facility] Medical History No pertinent past medical history Surgical History No pertinent past surgical history Family History Mother Asthma Diabetes Father Diabetes High blood pressure Alcoholism Maternal Grandmother High blood pressure Diabetes Cardiovascular disease High cholesterol Paternal Grandmother Diabetes Other Mental health disorder Substance abuse Social History (Updated 09/19/23 @ 14:42 by MARGO Mg) Housing: Apartment Alcohol intake: never Patient Tobacco Use Status: Current everyday Tobacco user Tobacco use type: Cigarette Cigarette Packs Per Day: 0.25 Cigarettes Per Day: 2 Years Smoked: 13 years e-Cigarette/Vaping Use: Never Used Second Hand Smoke Exposure: Yes service: No Current occupational status: employed Current occupation: Retail Cognitive needs: No Hearing needs: No Vision needs: No Questionnaire Thrive Questionnaire Date Thrive assessed: 05/20/23 JERILYN-7 AMB Questionnaire JERILYN-7 Date JERILYN - 7 assessed: 06/21/23 Source: Developed by Drs. Yaniv Gomez, Divine Marie, Dequan Burns and colleagues, with an educational florina from [employer] by [employer]. Review of Systems Const Details: Const Denies chills, Denies fatigue, Denies fever(s), Denies headache(s) and Denies weakness ENT Denies dizziness and Denies headache(s) Card Denies chest pain, Denies lightheadedness, Denies dyspnea and Denies other (Palpitations) Resp Denies cough, Denies dyspnea, Denies wheezing and Denies other ( shortness of breath) GI Denies abdominal pain, Denies melena, Denies hematochezia, Denies change in bowel habits, Denies dyspepsia and Denies nausea Denies hematuria and Denies dysuria Musc Denies abnormal gait, Denies myalgias, Denies arthralgias, Denies numbness and Denies tingling Skin/Breast Denies rash, Denies unusual bruising and Denies wounds Neuro Denies abnormal gait, Denies dizziness, Denies headache(s), Denies memory loss, Denies numbness, Denies Sensory deficit (Neuro), Denies tingling and Denies weakness Psych Denies anxiety, Denies depression, Denies memory loss Endo Denies cold intolerance, Denies fatigue, Denies heat intolerance, Denies polydipsia and Denies polyuria Aller/Immun Denies wheezing Physical exam (Primary Care) Tobacco/Smoking Status: Tobacco use Status Tobacco use date assessed 09/19/23 09/19/23 14:42 Patient Tobacco Use Status Current everyday Tobacco 09/19/23 14:42 Tobacco use type Cigarette 09/19/23 14:42 e-Cigarette/Vaping Use Never Used 09/19/23 14:42 Thrive Assessment: Date of Thrive Assessment Date Thrive assessed 05/20/23 09/19/23 14:42 Const Other: Telemedicine visit. No physical exam Telehealth Telehealth Telehealth Platform: Telephone Location of provider rendering services: practice address Location of patient: address on file Patient Identification confirmed using: Name, : Yes Telehealth method: voice only Patient verbally consented to treatment: Yes Patient verbally consented to billing insurance company: Yes Patient informed of any privacy concerns related to visit: Yes Assessment and Plan Assessment & Plan (1) Elevated ALT measurement: Code(s): R74.01 - Elevation of levels of liver transaminase levels Plan: Recent labs reviewed with the patient ALT is slightly elevated, 43; likely due to fatty liver Healthy diet and routine exercise encouraged Advised to schedule his next physical exam a year from his previous Return sooner with symptoms or concerns Verbalized understanding and agreed with the plan (2) Low 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
== END 2023-09-19 15:12 | disposition home or self-care (01) ==
LOC: HO.HMGFM 14:38
PROVIDERS: Visit Provider Nurse Practitioner Family
DX: R74.01 Elevation of levels of liver transaminase levels (principal); E78.6 Lipoprotein deficiency
CPT/HCPCS: 99212